=== PATIENT | male | born 1980 | race Two or more races ===

== ENCOUNTER 2021-02-20 12:05 | Emergency (ER) | payer MEDICAID, OTHER ==
[~2021-02-20] VITALS: Ht 175.3 cm; Wt 113.4 kg
[2021-02-20 14:43] VITALS: BP 117/78
== END 2021-02-20 15:30 | disposition home or self-care (01) ==
LOC: ER 12:05
DX: S63.502A Unspecified sprain of left wrist, initial encounter (principal); H66.92 Otitis media, unspecified, left ear; X58.XXXA Exposure to other specified factors, initial encounter; Y93.89 Activity, other specified; Y92.89 Other specified places as the place of occurrence of the external cause; Y99.8 Other external cause status
CPT/HCPCS: 73110